=== PATIENT | male | born 1990 | race Caucasian/White ===

== ENCOUNTER 2020-05-06 18:28 | Emergency (ER) | payer MEDICAID, SELFPAY ==
[2020-05-06 18:41] VITALS: BP 139/95; PULSE 76; RESP 18; TEMP 37.2; O2SAT 100
[2020-05-06 18:49] VITALS: RESP 18
--- NOTE | 2020-05-06 19:00 | RT.EKG_ITS ---
APPROVED REPORT Exam: Resting ECG Patient Location: E HR:58 bpm ECG Measurements Heart Rate 58 AXIS MO 163 P 74 QRSd 84 QRS 82 QT 457 T 65 QTc 448 Conclusion Sinus bradycardia...rate< 60 Normal Electrocardiogram, no stemi.
[2020-05-06] MEDS: Acetaminophen 500 MG TAB 1000 MG PO (19:10)
--- NOTE | 2020-05-06 19:22 | W.ED.GENAD ---
Discharge Plan Disposition Patient Disposition: OTHER Condition: Stable Discharge Details Clinical Impression: Medical clearance for incarceration ED Provider: Rema Oviedo Home Meds and New Rx's Prescriptions: Continued buprenorphine-naloxone 8-2 mg Tablet, Sublingual 1 tab SUBLINGUAL BID RF: 0 Discharge Instructions Instructions: Medical Clearance for Psychiatric Care (ED) Additional Instructions: Continue usual medications as previously prescribed Your COVID-19 testing is pending Follow-up with primary care provider as needed Medical Decision Making Patient presents under [facility] police custody here for a medical screening exam. He is complaining of cough and shortness of breath. He has a history of drug abuse on Suboxone. Will obtain routine mental health screening in addition to chest x-ray and COVID-19 testing. He does not have fever and is not hypoxic. His chest x-ray is unremarkable labs show a potassium of 3.3 otherwise unremarkable drug screen is positive for amphetamines and THC. He is given 40 meq of oral potassium. He is tolerating this with liquids well he is awake oriented hemodynamically stable. He is oxygenating in the high 90s on room air. His physical exam is unremarkable. He is medically cleared to return to police custody Medical Records Medical records reviewed: Yes I reviewed the patient's medical records. Lab Data Lab results reviewed: Yes I reviewed the patient's lab results. Lab results narrative: Laboratory Tests Range/Units 05/06/20 05/06/20 05/06/20 19:15 19:15 19:15 WBC (4.4-10.8) 10^3/uL 6.67 RBC (4.36-5.78) 10^6/uL 4.16 L Hgb (13.5-17.5) g/dL 13.1 L Hct (40.0-50.0) % 36.8 L MCV (80-95) fL 88.5 MCH (27.0-33.0) pg 31.5 MCHC (32.0-36.0) % 35.6 RDW (11.8-14.1) % 11.9 Plt Count (130-400) 10^3/uL 163 MPV (8.0-11.0) fL 11.2 H Immature Gran % 0.3 Neutrophils % 54.8 Lymphocytes % 34.3 Monocytes % 9.9 Eosinophils % 0.3 Basophils % 0.4 Nucleated RBC % % 0 Absolute Neutrophils (1.2-6.7) 10^3/uL 3.65 Absolute Lymphocytes (1.2-3.4) 10^3/uL 2.29 Absolute Monocytes (0.1-0.8) 10^3/uL 0.66 Absolute Eosinophils (0.0-0.7) 10^3/uL 0.02 Absolute Basophils (0.0-0.2) 10^3/uL 0.03 Sodium (136-145) mmol/L 138 Potassium (3.5-5.1) mmol/L 3.3 L Chloride (98-107) mmol/L 102 Carbon Dioxide (21.0-32.0) mmol/L 27.0 Anion Gap (3-11) mmol/L 9.0 BUN (7-18) mg/dL 16 Creatinine (0.70-1.30) mg/dL 0.98 Estimated GFR/1.73 m2 (mL/min/1.73m2) >= 60.00 Glucose (74-106) mg/dL 92 Calcium (8.5-10.1) mg/dL 9.4 Magnesium (1.8-2.4) mg/dL 2.1 Total Bilirubin (0.2-1.0) mg/dL 0.8 AST (15-37) U/L 149 H ALT (16-63) U/L 184 H Alkaline Phosphatase (46-116) U/L 56 Total Protein (6.4-8.2) g/dL 7.2 Albumin (3.4-5.0) g/dL 4.2 Lipase (73-393) U/L Urine Color (Yellow) Urine Clarity (Clear) Urine pH (5-8) Ur Specific [place] (1.005-1.025) Urine Protein (Negative) mg/dL Urine Ketones (Negative) mg/dL Urine Blood (Negative) Urine Nitrite (Negative) Urine Bilirubin (Negative) Urine Urobilinogen (Up TO 0.2) EU/dL Ur Leukocyte Esterase (Negative) Urine RBC (0-2) HPF Urine WBC (0-5) HPF Ur Epithelial Cells (Negative) HPF Urine Crystals (Negative) HPF Urine Bacteria (Negative) HPF Urine Casts (Negative) LPF Urine Mucus (Negative) Urine Other (Negative) Ur Culture Indicated? Urine Glucose (Negative) mg/dL Salicylates (2.8-20.0) mg/dL < 2.8 Urine Opiates Screen (Negative) Urine Methadone Screen (Negative) Acetaminophen (10-30) ug/mL < 2 Ur Barbiturates Screen (Negative) Ur Tricyclics Screen (Negative) Ur Amphetamines Screen (Negative) U Benzodiazepines Scrn (Negative) Urine Cocaine Screen (Negative) Ur THC Screen (Negative) Ethyl Alcohol (<3) mg/dL Range/Units 05/06/20 05/06/20 05/06/20 19:15 19:23 19:23 WBC (4.4-10.8) 10^3/uL RBC (4.36-5.78) 10^6/uL Hgb (13.5-17.5) g/dL Hct (40.0-50.0) % MCV (80-95) fL MCH (27.0-33.0) pg MCHC (32.0-36.0) % RDW (11.8-14.1) % Plt Count (130-400) 10^3/uL MPV (8.0-11.0) fL Immature Gran % Neutrophils % Lymphocytes % Monocytes % Eosinophils % Basophils % Nucleated RBC % % Absolute Neutrophils (1.2-6.7) 10^3/uL Absolute Lymphocytes (1.2-3.4) 10^3/uL Absolute Monocytes (0.1-0.8) 10^3/uL Absolute Eosinophils (0.0-0.7) 10^3/uL Absolute Basophils (0.0-0.2) 10^3/uL Sodium (136-145) mmol/L Potassium (3.5-5.1) mmol/L Chloride (98-107) mmol/L Carbon Dioxide (21.0-32.0) mmol/L Anion Gap (3-11) mmol/L BUN (7-18) mg/dL Creatinine (0.70-1.30) mg/dL Estimated GFR/1.73 m2 (mL/min/1.73m2) Glucose (74-106) mg/dL Calcium (8.5-10.1) mg/dL Magnesium (1.8-2.4) mg/dL Total Bilirubin (0.2-1.0) mg/dL AST (15-37) U/L ALT (16-63) U/L Alkaline Phosphatase (46-116) U/L Total Protein (6.4-8.2) g/dL Albumin (3.4-5.0) g/dL Lipase (73-393) U/L 39 Urine Color (Yellow) Yellow Urine Clarity (Clear) Clear Urine pH (5-8) 5.5 Ur Specific [place] (1.005-1.025) >= 1.030 H Urine Protein (Negative) mg/dL 30 H Urine Ketones (Negative) mg/dL 15 H Urine Blood (Negative) Negative Urine Nitrite (Negative) Negative Urine Bilirubin (Negative) Small H Urine Urobilinogen (Up TO 0.2) EU/dL 0.2 Ur Leukocyte Esterase (Negative) Negative Urine RBC (0-2) HPF 0-2 Urine WBC (0-5) HPF 0-2 Ur Epithelial Cells (Negative) HPF Negative Urine Crystals (Negative) HPF Negative Urine Bacteria (Negative) HPF Negative Urine Casts (Negative) LPF Negative Urine Mucus (Negative) Negative Urine Other (Negative) Negative Ur Culture Indicated? No Urine Glucose (Negative) mg/dL Negative Salicylates (2.8-20.0) mg/dL Urine Opiates Screen (Negative) Negative Urine Methadone Screen (Negative) Negative Acetaminophen (10-30) ug/mL Ur Barbiturates Screen (Negative) Negative Ur Tricyclics Screen (Negative) Negative Ur Amphetamines Screen (Negative) Positive A U Benzodiazepines Scrn (Negative) Negative Urine Cocaine Screen (Negative) Negative Ur THC Screen (Negative) Positive A Ethyl Alcohol (<3) mg/dL < 3.0 HPI General Mode of arrival: ambulatory. Date/Time Provider Initiated Documentation: 05/06/20 18:31. Limitations to Documentation: altered mental status. Information obtained by: patient and police. HPI Narrative: Patient brought in for medical screening exam prior to going to protective custody with a [facility] police. Patient has a history of drug abuse on Suboxone. He reports that he did not take his Suboxone today. He states that he has not had fever but he is convinced a relative has COVID and he has reported cough and shortness of breath there is no cough noted while he is here in the department. He also reports he has had poor p.o. intake and has not eaten he does not have abdominal pain nausea or vomiting just states that he does not feel like it he also reports today that he stepped on a yellow and black fuzzy bug and that he is having pain in his left heel. He is requesting a meal tray and his Suboxone Related Data Home Medications Medication Instructions Recorded Confirmed buprenorphine-naloxone 1 tab SUBLINGUAL BID 05/06/20 05/06/20 Allergies Allergy/AdvReac Type Severity Reaction Status Date / Time No Known Allergies Allergy Unverified 05/06/20 18:46 General Stated Complaint: GenMedical VIKKI: 3 Review of Systems Constitutional Constitutional: Denies fever(s) and Reports poor appetite Eyes Eyes: Denies blurry vision ENT Ears, Nose, Mouth, and Throat: Denies odynophagia Cardiovascular Cardiovascular: Denies chest pain and Reports dyspnea Respiratory Respiratory: Reports cough and Reports dyspnea Gastrointestinal Gastrointestinal: Denies constipation, Denies diarrhea, Denies nausea, Denies odynophagia and Denies vomiting Genitourinary Genitourinary: Denies urinary frequency, Denies urinary incontinence and Denies urinary urgency Musculoskeletal Comments: Left heel pain Integumentary/Breasts Skin/Breast: Denies lesions and Denies rash Comments: Calluses to both hands and fingers Neurologic Neurologic: Reports behavioral changes Psychiatric Psychiatric: Reports behavioral changes, Denies homicidal ideation and Denies suicidal ideation PFS Social History Smoking/Tobacco Use Status: Current every day Tobacco Type: cigarettes Alcohol Intake: never Drug use: Daily Substance use type: marijuana Do you feel safe at home: Yes Do you feel safe in your relationship?: Yes Exam Const General: disheveled and ill appearing Nutritional Appearance: cachectic and malnourished Orientation: alert, awake and oriented x3 HENMT Head: normal to inspection, normocephalic and atraumatic Resp Effort & Inspection: normal respiratory effort Auscultation: clear to auscultation bilaterally Cardio Rate: regular rate Rhythm: regular rhythm GI Inspection: normal to inspection Palpation: soft Auscultation: normal bowel sounds Neuro General: patient alert, patient awake and patient oriented x3 Extrem General: normal to inspection, full ROM and other (No rash or lesion noted to left heel where he reportedly stepped on a bug) Psych Appearance: disheveled Mental Status: mental status grossly normal Mood: irritable mood Affect: blunted Attitude: cooperative Insight: poor Judgment: poor Course Vital Signs Vital signs: Vital Signs Temperature 37.2 C 05/06/20 18:41 Pulse 76 05/06/20 18:41 Respiratory Rate 18 05/06/20 18:41 Blood Pressure 139/95 H 05/06/20 18:41 Pulse Oximetry 100 05/06/20 18:41 Temperature 37.2 C 05/06/20 18:41 Temperature Source Temporal Artery Scan 05/06/20 18:41 Pulse 76 05/06/20 18:41 Respiratory Rate 18 05/06/20 18:49 Respiratory Effort 05/06/20 18:49 Respiratory Depth Normal 05/06/20 18:49 Respiratory Pattern Normal 05/06/20 18:49 Blood Pressure 139/95 H 05/06/20 18:41 Blood Pressure Position Sitting 05/06/20 18:41 Pulse Oximetry 100 05/06/20 18:41 Oxygen Delivery Method Room Air 05/06/20 18:41 Oxygen Flow Rate 0 05/06/20 18:41 Pain Level 10 05/06/20 19:10
--- NOTE | 2020-05-06 19:25 | DI.RAD_ITS ---
EXAM: XR PORTABLE CHEST AP CLINICAL HISTORY: cough sob TECHNIQUE: 2D digital imaging was performed. COMPARISON: No exams were available for comparison FINDINGS: LUNGS: Clear. No pleural abnormality seen. HEART: Normal. MEDIASTINUM: Normal. OTHER FINDINGS: None. IMPRESSION: No acute pulmonary findings. DATA REPOSITORY: RADIATION DOSE DELIVERED:
[2020-05-06 19:37] LABS: Abs Immature Grans 0.02 10^3/uL (0.0-0.06); Absolute Basophil Count 0.03 10^3/uL (0.0-0.2); Absolute Eosinophil Count 0.02 10^3/uL (0.0-0.7); Absolute Lymphocyte Count 2.29 10^3/uL (1.2-3.4); Absolute Monocyte Count 0.66 10^3/uL (0.1-0.8); Absolute Neutrophil Count 3.65 10^3/uL (1.2-6.7); Basophils % 0.4; Eosinophils % 0.3; HCT 36.8 % (40.0-50.0); HGB 13.1 g/dL (13.5-17.5); Immature Grans % 0.3; Lymphocytes % 34.3; MCH 31.5 pg (27.0-33.0); MCHC 35.6 % (32.0-36.0); MCV 88.5 fL (80-95); MPV 11.2 fL (8.0-11.0); Monocytes % 9.9; Neutrophils % 54.8; Nucleated RBC 0 %; Platelet Count 163 10^3/uL (130-400); RBC 4.16 10^6/uL (4.36-5.78); RDW 11.9 % (11.8-14.1); RDW-SD 38.1 fL; WBC 6.67 10^3/uL (4.4-10.8)
[2020-05-06 19:40] LABS: Bilirubin Small (Negative); Blood Negative (Negative); Clarity Clear (Clear); Glucose Negative (Negative); Ketones 15 mg/dL (Negative); Leukocyte Esterase Negative (Negative); Nitrite Negative (Negative); Specific Gravity >= 1.030 (1.005-1.025); Urobilinogen 0.2 EU/dL (Up TO 0.2); pH 5.5 (5-8)
[2020-05-06 19:42] LABS: Lipase 39 U/L (73-393)
[2020-05-06 19:47] LABS: ALT 184 U/L (16-63); AST 149 U/L (15-37); Albumin 4.2 g/dL (3.4-5.0); Alkaline Phosphatase 56 U/L (46-116); BUN 16 mg/dL (7-18); Bilirubin, Total 0.8 mg/dL (0.2-1.0); CREATININE 0.98 mg/dL (0.70-1.30); Calcium 9.4 mg/dL (8.5-10.1); Chloride 102 mmol/L (98-107); Glucose 92 mg/dL (74-106); Magnesium 2.1 mg/dL (1.8-2.4); Potassium 3.3 mmol/L (3.5-5.1); Sodium 138 mmol/L (136-145); Total Protein 7.2 g/dL (6.4-8.2)
[2020-05-06 20:02] LABS: *AMPHETAMINES SCREEN URINE POSITIVE (Negative); *BARBITURATES SCREEN URINE Negative (Negative); *BENZODIAZEPINES SCREEN URINE Negative (Negative); Cannabinoids THC POSITIVE (Negative); Cocaine Screen,Urine Negative (Negative); METHADONE URINE SCREEN Negative (Negative); OPIATES URINE SCREEN Negative (Negative)
[2020-05-06 20:06] LABS: Bacteria Negative HPF (Negative); C & S Indicated? No; Casts Negative LPF (Negative); Crystals Negative HPF (Negative); Epithelial Cells Negative HPF (Negative); Mucus Negative (Negative); Other Cells Negative (Negative); RBC 0-2 HPF (0-2); WBC 0-2 HPF (0-5)
[2020-05-06 20:06] LABS: Salicylate < 2.8 mg/dL (2.8-20.0)
[2020-05-06 20:07] LABS: Acetaminophen < 2 ug/mL (10-30)
[2020-05-06 20:08] LABS: Tricyclic Antidepressants Negative (Negative)
--- NOTE | 2020-05-06 20:08 | DI.VRAD_ITS ---
PROCEDURE INFORMATION: Exam: XR Chest, 1 View Exam date and time: 05/06/2020 7:42 PM Age: 29 years old Clinical indication: Cough and shortness of breath; Patient HX: Cough SOB TECHNIQUE: Imaging protocol: XR of the chest Views: 2 views. COMPARISON: No relevant prior studies available. FINDINGS: Lungs: No focal airspace consolidation. Pleural space: No large pleural effusion. No large pneumothorax. Heart/Mediastinum: Cardiomediastinal silhouette is unremarkable. Bones/joints: No displaced fracture. IMPRESSION: No acute findings. Dictated and Authenticated by: Janell Johnson MD. Ordering:CHARLIE Hodgson MD
[2020-05-06 20:09] LABS: ETHANOL BLOOD < 3.0 mg/dL (<3)
[2020-05-06 20:16] VITALS: BP 122/66; PULSE 64; RESP 12; TEMP 36.6; O2SAT 97
[2020-05-06] MEDS: Potassium Chloride 20 MEQ TABCR 40 MEQ PO (20:17)
[2020-05-06 20:26] VITALS: BP 122/66; PULSE 64; RESP 12; TEMP 36.6; O2SAT 97
[2020-05-07 17:31] LABS: COVID-19 RT-PCR UVMMC Result Negative (Negative)
== END 2020-05-06 20:35 | disposition other institution (70) ==
PROVIDERS: Emergency Provider Nurse Practitioner Acute Care; PCP Family Medicine Sports Medicine
DX: R06.02 Shortness of breath (principal); F11.10 Opioid abuse, uncomplicated; Z03.818 Encounter for observation for suspected exposure to other biological agents ruled out
CPT/HCPCS: 36415; 80053; 80307; 83690; 93005; 99285; U0003; 71045; 80320; 80329; 81003; 81015; 83735; 85025; 93010; 99284